=== PATIENT | female | born 1980 | race Caucasian/White ===

== ENCOUNTER → 2018-10-09 | Outpatient (CLI) | payer MEDICARE, OTHER ==
[~2018-10-09] MED LIST: LAMO100; PARO20 PO; VENL75ER PO
[2018-10-09 13:55] LABS: U Amphetamine Screen DETECTED; U Barbituate Screen Not Detected; U Benzodiazapine Screen Not Detected; U Buprenorphine Screen Not Detected; U Cannabinoids Screen Not Detected; U Cocaine Screen Not Detected; U Methadone Screen Not Detected; U Methamphetamine Screen Not Detected; U Opiates Screen Not Detected; U Oxycodone Screen Not Detected; U Phencyclidine Screen Not Detected; U Propoxyphene Screen Not Detected
== END ==
LOC: LAB SHORT 09:45 → LAB 09:45
PROVIDERS: Registered Nurse
DX: Z51.81 Encounter for therapeutic drug level monitoring (principal); Z79.899 Other long term (current) drug therapy

== ENCOUNTER 2018-12-29 19:53 | Emergency (ER) | payer OTHER, MEDICARE ==
[~2018-12-29] VITALS: Ht 162.6 cm; Wt 99.8 kg
[2018-12-29] MEDS ORDERED: Baclofen10 MG PO ×2 (21:28→21:32)
== END 2018-12-29 21:48 | disposition home or self-care (01) ==
LOC: ER 19:53
DX: S49.92XA Unspecified injury of left shoulder and upper arm, initial encounter (principal); Z88.0 Allergy status to penicillin; Z91.09 Other allergy status, other than to drugs and biological substances; Z91.040 Latex allergy status; Z79.899 Other long term (current) drug therapy; F32.9 Major depressive disorder, single episode, unspecified; Z87.891 Personal history of nicotine dependence; Z90.49 Acquired absence of other specified parts of digestive tract; V69.40XA Driver of heavy transport vehicle injured in collision with unspecified motor vehicles in traffic accident, initial encounter
CPT/HCPCS: 99283

== ENCOUNTER → 2019-04-21 | Outpatient (CLI) | payer OTHER, MEDICARE ==
[~2019-04-21] MED LIST changes: +Baclofen10 MG PO
== END | disposition home or self-care (01) ==
LOC: LAB EV 11:17 → LAB SHORT 11:17
DX: L02.411 Cutaneous abscess of right axilla (principal)
CPT/HCPCS: 87070; 87075; 87205

== ENCOUNTER → 2019-05-20 | Outpatient (CLI) | payer MEDICARE, OTHER ==
[2019-05-20 14:58] LABS: U Amphetamine Screen DETECTED; U Oxycodone Screen DETECTED
[2019-05-20 14:59] LABS: U Barbituate Screen Not Detected; U Benzodiazapine Screen Not Detected; U Buprenorphine Screen Not Detected; U Cannabinoids Screen Not Detected; U Cocaine Screen Not Detected; U Methadone Screen Not Detected; U Methamphetamine Screen Not Detected; U Opiates Screen Not Detected; U Phencyclidine Screen DETECTED; U Propoxyphene Screen Not Detected
== END ==
LOC: LAB 13:13 → LAB SHORT 13:13
PROVIDERS: Registered Nurse
DX: Z51.81 Encounter for therapeutic drug level monitoring (principal); Z79.899 Other long term (current) drug therapy
CPT/HCPCS: G0480

== ENCOUNTER 2021-01-26 04:55 | Emergency (ER) | payer MEDICARE, OTHER ==
[~2021-01-26] VITALS: Ht 162.6 cm; Wt 113.4 kg
== END 2021-01-26 06:23 | disposition home or self-care (01) ==
LOC: ER 04:55
DX: R51.9 Headache, unspecified (principal); Z79.899 Other long term (current) drug therapy; Z88.0 Allergy status to penicillin; Z91.09 Other allergy status, other than to drugs and biological substances; Z91.040 Latex allergy status; Z87.891 Personal history of nicotine dependence
CPT/HCPCS: 64450; 96374-59; 96375-59; 99283-25; J1200; J1790; J1885

== ENCOUNTER 2021-08-29 07:02 | Emergency (ER) | payer MEDICARE, OTHER ==
[~2021-08-29] VITALS: Ht 162.6 cm; Wt 108.9 kg
[2021-08-29] MEDS ORDERED: Amphetamine Sal15 MG PO (07:34)
[2021-08-29] MEDS ORDERED: ARIPIPRAZOLE PO (07:35)
[2021-08-29] MEDS ORDERED: ZOLPIDEM TARTRA10 MG PO (07:35)
[2021-08-29] MEDS ORDERED: METOPROLOL SUCC25 MG PO (07:36)
[2021-08-29] MEDS ORDERED: ATOR40TA PO (07:37)
[2021-08-29] MEDS ORDERED: Roxicodone5 MG PO (08:56)
[2021-08-29] MEDS ORDERED: Neurontin 300300 MG PO (08:56)
[2021-08-29] MEDS ORDERED: Prednisone20 MG PO (08:56)
== END 2021-08-29 09:19 | disposition home or self-care (01) ==
LOC: ER 07:02
DX: M54.32 Sciatica, left side (principal); I10 Essential (primary) hypertension; Z88.0 Allergy status to penicillin; Z91.040 Latex allergy status; Z91.048 Other nonmedicinal substance allergy status; Z79.899 Other long term (current) drug therapy
CPT/HCPCS: 96372; 99283-25; A9270; J1170

== ENCOUNTER 2021-08-29 09:48 | Emergency (ER) | payer MEDICARE, OTHER ==
[~2021-08-29] VITALS: Ht 162.6 cm; Wt 108.9 kg
[~2021-08-29 09:48] MED LIST changes: +ARIPIPRAZOLE PO; +ATOR40TA PO; +Amphetamine Sal15 MG PO; +METOPROLOL SUCC25 MG PO; +Neurontin 300300 MG PO; +Prednisone20 MG PO; +Roxicodone5 MG PO; +ZOLPIDEM TARTRA10 MG PO
== END 2021-08-29 10:57 | disposition home or self-care (01) ==
LOC: ER 09:48
DX: M54.32 Sciatica, left side (principal); Z88.0 Allergy status to penicillin; Z91.048 Other nonmedicinal substance allergy status; Z91.040 Latex allergy status; Z79.899 Other long term (current) drug therapy; Z87.891 Personal history of nicotine dependence
CPT/HCPCS: 99282; A9270; J7512

== ENCOUNTER → 2022-05-09 | Outpatient (CLI) | payer MEDICARE, OTHER ==
[2022-05-10 15:10] LABS: HPV 16 Negative (Negative); HPV 18 Negative (Negative); HPV OTHER HR TYPES Negative (Negative)
[2022-05-11 12:10] LABS: CHLAMYDIA BY NAA Negative (Negative); GONOCOCCUS BY NAA Negative (Negative); TRICH VAG BY NAA Negative (Negative)
[2022-05-13 13:20] LABS: CHLAMYDIA TRACHOMATIS, NAA Negative (Negative)
== END | disposition home or self-care (01) ==
LOC: LAB SHORT 13:08 → LAB 13:08
PROVIDERS: Nurse Practitioner Family
DX: Z01.419 Encounter for gynecological examination (general) (routine) without abnormal findings (principal); Z11.3 Encounter for screening for infections with a predominantly sexual mode of transmission; Z72.53 High risk bisexual behavior
CPT/HCPCS: 87070; 87205; 87491; 87591; 87624; 87661; G0123

== ENCOUNTER 2023-01-29 08:43 | Emergency (ER) | payer MEDICARE, OTHER ==
[~2023-01-29] VITALS: Ht 162.6 cm; Wt 112.5 kg
[2023-01-29] MEDS ORDERED: TRIDERM28.4 GM TOP (09:14)
[2023-01-29] MEDS ORDERED: PRED20 PO (09:14)
== END 2023-01-29 09:18 | disposition home or self-care (01) ==
LOC: ER 08:43
DX: L23.7 Allergic contact dermatitis due to plants, except food (principal); Z91.040 Latex allergy status; Z88.0 Allergy status to penicillin; Z91.048 Other nonmedicinal substance allergy status; Z79.899 Other long term (current) drug therapy; Z87.891 Personal history of nicotine dependence
CPT/HCPCS: 99282

== ENCOUNTER 2023-03-23 12:09 | Observation (INO) | payer MEDICARE, OTHER ==
[~2023-03-23] VITALS: Ht 162.6 cm; Wt 92.2 kg
[~2023-03-23 12:09] MED LIST changes: +PRED20 PO; +TRIDERM28.4 GM TOP
[2023-03-23 13:31] LABS: BASOPHILS ABSOLUTE AUTO 0.06 K/mm3 (0.00-0.23); BASOPHILS PERCENT AUTO 1 % (0-2); EOSINOPHILS ABSOLUTE AUTO 0.09 K/mm3 (0.00-0.68); EOSINOPHILS PERCENT AUTO 1 % (0-6); Hematocrit 41.9 % (33.0-51.0); Hemoglobin 13.9 g/dL (11.5-16.0); IMMATURE GRAN ABSOLUTE AUTO 0.02 K/mm3 (0.00-0.10); IMMATURE GRAN PERCENT AUTO 0 % (0-1); LYMPHOCYTES ABSOLUTE AUTO 2.82 K/mm3 (0.84-5.20); LYMPHOCYTES PERCENT AUTO 31 % (21-46); MONOCYTES ABSOLUTE AUTO 0.46 K/mm3 (0.16-1.47); MONOCYTES PERCENT AUTO 5 % (4-13); Mean Corpuscular HGB 29.1 pg (26.0-34.0); Mean Corpuscular HGB Conc 33.2 g/dL (31.5-36.5); Mean Corpuscular Volume 88 fL (80-100); Mean Platelet Volume 9.7 fL (9.1-12.4); NEUTROPHILS ABSOLUTE AUTO 5.56 K/mm3 (1.96-9.15); NEUTROPHILS PERCENT AUTO 62 % (41-73); Platelet Count 314 K/mm3 (150-400); RDW Coefficient Variation 13.2 % (11.7-14.2); RDW Standard Deviation 42.6 fL (35.1-46.3); Red Blood Cell Count 4.78 M/mm3 (3.80-5.20); White Blood Cell Count 9.01 K/mm3 (4.00-11.30)
[2023-03-23 13:52] LABS: Albumin, Blood 3.9 g/dL (3.4-5.0); Albumin/Globulin Ratio 1.1 (0.8-1.8); Bilirubin, Total 0.8 mg/dL (0.1-1.0); Bun/Creatinine Ratio 27.8 (12.0-20.0); Calcium, Blood 9.2 mg/dL (8.5-10.1); Creatinine, Blood 0.76 mg/dL (0.40-1.00); Globulin, Blood 3.6 g/dL (2.2-4.0); Potassium, Blood 3.9 mmol/L (3.5-5.5); Total Protein, Blood 7.5 g/dL (6.4-8.2)
[2023-03-23] MEDS ORDERED: AMPDEX10CR (14:30)
[2023-03-23 17:04] VITALS: BP 187/111
[2023-03-23] MEDS ORDERED: Prinivil10 MG PO (17:42)
--- NOTE | 2023-03-23 18:06 | NUR ---
ADMISSION NOTE: PATIENT ARRIVES AT 1659 FROM ER FOR DX OF CVA. PATIENT WAS TRANSPORTED VIA WHEELCHAIR AND TRANSFERRED TO BED c SBA. PATIENT A&OX4. PLEASANT AND COOPERATIVE c CARE. SKIN ASSESSMENT c 2 RN LEAF CONDITIONER HELPER COMPLETED. NEURO ASSESSMENT DONE. LASHON ROBBINS. SENSATIONS AND STRENGTH TO ALL EXTREMITIES ARE INTACT c NO DEFICIT NOTED. DRY SCAB TO BUE SCATTERED T/O. REDNESS AND MOIST TO GROIN AREA. SWALLOWING EVAL WAS PERFORMED AT BEDSIDE. PATIENT ABLE TO SWALLOW THIN LIQUID, SOFT AND REGULAR TEXTURE FOOD WITHOUT ANY DIFFICULTIES. ON TELE, SR HR IN THE HIGH 90'S BPM. PATIENT DENIES CP/PRESSURE, SOB, N/V AND GENERALIZED PAIN. HYPERTENSIVE. DR. FRANK IS AWARE OF THIS ISSUE. MRI AND VENOUS CAROTID DUPLEX WAS DONE, AWAITING FOR RESULT. THIS RN WILL CONTINUE TO MONITOR PATIENT. CALL LIGHT IN REACH.
[2023-03-23 19:51] VITALS: BP 159/104
[2023-03-24] VITALS (8 sets, daily range): BP systolic 131–182; BP diastolic 95–118
--- NOTE | 2023-03-24 01:13 | NUR ---
NEURO CHECK WNL.
[2023-03-24 04:52] LABS: Hematocrit 41.5 % (33.0-51.0); Hemoglobin 13.8 g/dL (11.5-16.0); Mean Corpuscular HGB 29.3 pg (26.0-34.0); Mean Corpuscular HGB Conc 33.3 g/dL (31.5-36.5); Mean Corpuscular Volume 88 fL (80-100); Mean Platelet Volume 9.9 fL (9.1-12.4); Platelet Count 305 K/mm3 (150-400); RDW Coefficient Variation 13.4 % (11.7-14.2); RDW Standard Deviation 43.3 fL (35.1-46.3); Red Blood Cell Count 4.71 M/mm3 (3.80-5.20)
--- NOTE | 2023-03-24 05:04 | NUR ---
SHIFT SUMMARY: GENEVA IS A&OX4. VSS, NO ACUTE EVENTS OVERNIGHT. PT'S BP TRENDED DOWN WITH PO LISINOPRIL AND DID NOT REQUIRE HYDRALAZINE. PT IS TOLERATING PO INTAKE WELL, STANDBY ASSIST TO THE BATHROOM. SHE REPORTED ONE EPISODE OF DIZZINESS WHICH SHE STATES RESOLVED WITHOUT ANY INTERVENTION. PT IS PLEASANT AND COOPERATIVE. SHE IS LYING IN BED WITH THE CALL LIGHT IN REACH. WCTM UNTIL REPORT IS GIVEN TO DAY SHIFT RN.
[2023-03-24 05:14] LABS: Anion Gap 6 mmol/L (6-16); Blood Urea Nitrogen 20 mg/dL (8-24); Bun/Creatinine Ratio 25.9 (12.0-20.0); CO2, Blood 25 mmol/L (21-32); Calcium, Blood 9.1 mg/dL (8.5-10.1); Chloride, Blood 109 mmol/L (98-108); Cholesterol 293 mg/dL (50-200); Creatinine, Blood 0.77 mg/dL (0.40-1.00); Glomerular Filtration Rate 97 (60-); Glucose, Blood 103 mg/dL (70-99); HDL Cholesterol 59 mg/dL (>39); LDL/HDL RATIO 3.4; Low Density Lipoprotein Chol 203 mg/dL (0-110); Potassium, Blood 3.8 mmol/L (3.5-5.5); Sodium, Blood 140 mmol/L (136-145); Triglycerides 157 mg/dL (30-160); Very Low Density Lipoprot Chol 31 mg/dL (6-32)
--- NOTE | 2023-03-24 08:30 | NUR ---
pt laying in bed awake a/ox4, pleasant and cooperative with care, follows commands well, denies pain, states she had a bout of dizziness this am, lungs are clear t/o, resp even and ulabored, no cough noted, hrr, tele in place running sr per monitor, see strip, no edema noted, ppp+2, cap refill <3sec, vs stable, afebrile, iv site is clear and patent, btx4, abd flat soft nontender, voids without diff, skin c/w//d, maew, rigoberto, call light in reach.
--- NOTE | 2023-03-24 09:04 | NUR ---
notified Dr. Teran of pt having two episodes of feeling dizzy, like she just stood up but is sitting in bed. right arm was weak after taking b/p. call light in reach, visitor in room.
--- NOTE | 2023-03-24 16:33 | NUR ---
gave pt hydralazine for htn, brought down some, still high at 182/111, pt not symtomatic, resting in bed, no complaints or needs. call light in reach.
--- NOTE | 2023-03-24 18:06 | NUR ---
EKG done per order, she was given hydralazine for htn, has had several episodes of dizzy symptoms, pt and ot worked with her, no further changes this shift. call light in reach.
[2023-03-24 18:36] LABS: CPK Creatine Kinase 51 U/L (26-193)
[2023-03-25 00:27] VITALS: BP 141/87
[2023-03-25 03:59] VITALS: BP 155/107
[2023-03-25 05:58] LABS: Albumin, Blood 3.7 g/dL (3.4-5.0); Anion Gap 9 mmol/L (6-16); Blood Urea Nitrogen 20 mg/dL (8-24); CO2, Blood 21 mmol/L (21-32); Chloride, Blood 110 mmol/L (98-108); Creatinine, Blood 0.87 mg/dL (0.40-1.00); Glomerular Filtration Rate 84 (60-); Glucose, Blood 108 mg/dL (70-99); Phosphorus, Blood 3.1 mg/dL (2.5-4.9); Potassium, Blood 3.8 mmol/L (3.5-5.5); Sodium, Blood 140 mmol/L (136-145)
[2023-03-25 06:28] VITALS: BP 145/105
--- NOTE | 2023-03-25 07:32 | NUR ---
Shift Summary Pt hypertensive t/o shift, rcvd PRN hydralazine as ordered which didn't seem to help much. Diastolic pressure remained above 100 t/o most of the shift. No c/o pain or nausea. Pt ambulated through the halls, stead on her feet and independent in the room. Slept through some of the night.
[2023-03-25 08:04] VITALS: BP 158/104
[2023-03-25 12:35] VITALS: BP 160/108
[2023-03-25 16:50] VITALS: BP 123/72
[2023-03-25] MEDS ORDERED: MECL25 PO (17:20)
[2023-03-25] MEDS ORDERED: ASPI81CH PO (17:22)
[2023-03-25] MEDS ORDERED: METO25 PO (17:22)
--- NOTE | 2023-03-25 17:40 | NUR ---
DISCHARGE PT A&OX4, FAMILY HERE TO PROVIDE TRANSPORT. TOLERATING PO INTAKE WELL. BP MANAGED W/ MED ADJUST. PT REFUSED ESCOURT OUT TO CURBSIDE. VSS.
== END 2023-03-25 17:40 | disposition home or self-care (01) ==
LOC: ER 12:09 → MEDS 12:10
PROVIDERS: Emergency Medicine; ADMIT Internal Medicine
DX: R53.1 Weakness (principal); I10 Essential (primary) hypertension; E78.5 Hyperlipidemia, unspecified; F32.A Depression, unspecified; Z88.0 Allergy status to penicillin; F90.9 Attention-deficit hyperactivity disorder, unspecified type; H81.10 Benign paroxysmal vertigo, unspecified ear
CPT/HCPCS: 36415; 70450; 70551; 71045; 80048; 80053; 80061; 80069; 82550; 82947; 83036; 84484; 85025; 85027; 93005; 93010; 93306; 93880; 96372; 96374; 96376; 97112; 97161; 97164; 97165; 97530; 99285-25; A9270; G0378; J0360; J1650

== ENCOUNTER → 2023-10-30 | Outpatient (CLI) | payer MEDICARE, OTHER ==
[~2023-10-30] MED LIST changes: +AMPDEX10CR; +ASPI81CH PO; +MECL25 PO; +METO25 PO; +Prinivil10 MG PO
== END ==
LOC: LAB SHORT 09:30 → LAB 09:30
DX: J02.9 Acute pharyngitis, unspecified (principal)
CPT/HCPCS: 87081; 87147

== ENCOUNTER → 2024-08-27 | Outpatient (CLI) | payer MEDICARE, OTHER ==
[~2024-08-27] MED LIST changes: +MELO7.5 PO
[2024-08-31 15:15] LABS: APTIMA MEDIA TYPE Urine; C. TRACHOMATIS BY TMA Negative (Negative); N. GONORRHOEAE BY TMA Negative (Negative); SPECIMEN SOURCE Urine
== END ==
LOC: LAB SHORT 17:28 → LAB 17:28
PROVIDERS: Nurse Practitioner Family
DX: R39.15 Urgency of urination (principal); Z11.3 Encounter for screening for infections with a predominantly sexual mode of transmission
CPT/HCPCS: 87491; 87591

== ENCOUNTER 2024-12-08 17:39 | Emergency (ER) | payer MEDICARE, OTHER ==
[~2024-12-08] VITALS: Ht 162.6 cm; Wt 136.1 kg
[2024-12-08] MEDS ORDERED: Lactated Ringer's 1,000 ML IV ONE (18:15)
[2024-12-08] MEDS ORDERED: Ketorolac Tromethamine 15mg Vial IV ONE (18:15)
[2024-12-08 18:26] LABS: BASOPHILS ABSOLUTE AUTO 0.07 K/mm3 (0.00-0.23); BASOPHILS PERCENT AUTO 1 % (0-2); EOSINOPHILS ABSOLUTE AUTO 0.17 K/mm3 (0.00-0.68); EOSINOPHILS PERCENT AUTO 1 % (0-6); Hematocrit 39.4 % (33.0-51.0); Hemoglobin 13.3 g/dL (11.5-16.0); IMMATURE GRAN ABSOLUTE AUTO 0.04 K/mm3 (0.00-0.10); IMMATURE GRAN PERCENT AUTO 0 % (0-1); LYMPHOCYTES ABSOLUTE AUTO 4.16 K/mm3 (0.84-5.20); LYMPHOCYTES PERCENT AUTO 35 % (21-46); MONOCYTES ABSOLUTE AUTO 0.55 K/mm3 (0.16-1.47); MONOCYTES PERCENT AUTO 5 % (4-13); Mean Corpuscular HGB 29.5 pg (26.0-34.0); Mean Corpuscular HGB Conc 33.8 g/dL (31.5-36.5); Mean Corpuscular Volume 87 fL (80-100); Mean Platelet Volume 9.5 fL (9.1-12.4); NEUTROPHILS ABSOLUTE AUTO 6.85 K/mm3 (1.96-9.15); NEUTROPHILS PERCENT AUTO 58 % (41-73); Platelet Count 352 K/mm3 (150-400); RDW Coefficient Variation 13.4 % (11.7-14.2); RDW Standard Deviation 42.7 fL (35.1-46.3); Red Blood Cell Count 4.51 M/mm3 (3.80-5.20); White Blood Cell Count 11.84 K/mm3 (4.00-11.30)
[2024-12-08 18:58] LABS: Albumin, Blood 3.4 g/dL (3.4-5.0); Albumin/Globulin Ratio 0.8 (0.8-1.8); Bilirubin, Total 0.7 mg/dL (0.1-1.0); Bun/Creatinine Ratio 12.6 (12.0-20.0); Calcium, Blood 9.4 mg/dL (8.5-10.1); Creatinine, Blood 0.87 mg/dL (0.40-1.00); Globulin, Blood 4.3 g/dL (2.2-4.0); Potassium, Blood 3.4 mmol/L (3.5-5.5); Total Protein, Blood 7.7 g/dL (6.4-8.2)
[2024-12-08 19:07] LABS: CORONAVIRUS COVID-19 AG Negative (NEGATIVE); INFLUENZA A AG Negative (NEGATIVE); INFLUENZA B AG Negative (NEGATIVE)
[2024-12-08 19:30] VITALS: BP 168/107
== END 2024-12-08 19:59 | disposition home or self-care (01) ==
LOC: ER 17:39
PROVIDERS: Student in an Organized Health Care Education/Training Program
DX: R07.9 Chest pain, unspecified (principal); Z88.0 Allergy status to penicillin; Z91.048 Other nonmedicinal substance allergy status; Z91.040 Latex allergy status; Z79.899 Other long term (current) drug therapy; Z79.02 Long term (current) use of antithrombotics/antiplatelets; Z88.8 Allergy status to other drugs, medicaments and biological substances; Z79.1 Long term (current) use of non-steroidal anti-inflammatories (NSAID)
CPT/HCPCS: 71045; 80053; 83735; 84484; 85025; 87428-QW; 93005; 93010; 96374; 99285-25; J1885; J7120